=== PATIENT | female | born 1995 | race Hispanic/Latino ===

== ENCOUNTER 2018-03-14 14:06 | Emergency (ER) | payer SELFPAY ==
--- NOTE | 2018-03-14 16:05 | ER ---
Nurse's Notes [facility] Name: Helena Dent Age: 22 yrs Sex: Female : 1995 Arrival Date: 03/14/2018 Time: 14:13 Bed 21 Private MD: Diagnosis: Acute tonsillitis Presentation: 03/14 14:14 Presenting complaint: Patient states: i have sore throat 2 days ago; reports fever last hj night; took Aleve, today at 6 am;. Transition of care: patient was not received from another setting of care. Onset of symptoms was March 14, 2018. Risk Assessment: Do you want to hurt yourself or someone else? Patient reports no desire to harm self or others. Initial Sepsis Screen: Does the patient meet any 2 criteria? No. Patient's initial sepsis screen is negative. Does the patient have a suspected source of infection? No. Patient's initial sepsis screen is negative. Care prior to arrival: None. 14:14 Method Of Arrival: Ambulatory 14:14 Acuity: ROBEL 4 hj Triage Assessment: 14:16 General: Appears in no apparent distress. uncomfortable, Behavior is calm, cooperative, hj appropriate for age. Pain: Complains of pain in throat. EENT: No signs and/or symptoms were reported regarding the EENT system. Reports pain. 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 - Social history:: Smoking status: Patient/guardian denies using tobacco, Patient/guardian denies using alcohol. - Ebola Screening: : Patient negative for fever greater than or equal to 101.5 degrees Fahrenheit, and additional compatible Ebola Virus Disease symptoms Patient denies exposure to infectious person Patient denies travel to an Ebola-affected area in the 21 days before illness onset. Screenin:17 Abuse screen: Denies threats or abuse. Denies injuries from another. Nutritional hj screening: No deficits noted. Tuberculosis screening: No symptoms or risk factors identified. Fall Risk None identified. Assessment: 14:17 Respiratory: Airway is patent Respiratory effort is even, unlabored, Respiratory hj pattern is regular, symmetrical, Breath sounds are clear. EENT: Throat. Vital Signs: 14:17 BP 105 / 65; Pulse 97; Resp 18; Temp 99.8(O); Pulse Ox 99% on R/A; Weight 104.33 kg; hj Height 5 ft. 4 in. (162.56 cm); Pain 4/10; 14:17 Body Mass Index 39.48 (104.33 kg, 162.56 cm) ED Course: 14:13 Patient arrived in ED. mr 14:16 Triage completed. hj 14:17 Arm band placed on left wrist. hj 14:22 Patient has correct armband on for positive identification. Bed in low position. Call hj light in reach. Side rails up X 1. Adult w/ patient. 14:30 Flu Sent. hj 14:30 Strep Sent. hj 15:23 Edin Downs RN is Primary Nurse. hj 15:42 Floyd Argueta PA is PHCP. cp 15:42 Feroz Root MD is Attending Physician. cp 17:05 No provider procedures requiring assistance completed. Patient did not have IV access iw during this emergency room visit. Administered Medications: No medications were administered Outcome: 16:04 Discharge ordered by MD. cp 17:05 Discharged to home ambulatory. iw 17:05 Condition: good 17:05 Discharge instructions given to patient, Instructed on discharge instructions, follow up and referral plans. medication usage, Demonstrated understanding of instructions, follow-up care, medications, Prescriptions given X 1. 17:05 Patient left the ED. iw Signatures: Helena Abbott Lizzeth Cabrera RN RN Edin Downs RN RN Floyd Argueta PA PA cp Corrections: (The following items were deleted from the chart) 14:22 14:17 Pulse 97bpm; Resp 18bpm; Pulse Ox 99% RA; Temp 99.8F Oral; 104.33 kg; Height 5 hj ft. 4 in.; BMI: 39.4; Pain 4/10; hj
--- NOTE | 2018-03-14 16:05 | EDPHYS ---
Physician Documentation [facility] Name: Helena Dent Age: 22 yrs Sex: Female : 1995 Arrival Date: 03/14/2018 Time: 14:13 Bed 21 Private MD: ED Physician Feroz Root HPI: 03/14 15:56 This 22 yrs old Female presents to ER via Ambulatory with complaints of Sore cp Throat. 15:56 The patient presents with sore throat. The patient describes throat pain as constant. cp Onset: The symptoms/episode began/occurred 2 day(s) ago. 15:56 Associated signs and symptoms: Pertinent positives: cough, fever, Pertinent negatives cp diarrhea, vomiting. 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 - Social history:: Smoking status: Patient/guardian denies using tobacco, Patient/guardian denies using alcohol. - Ebola Screening: : Patient negative for fever greater than or equal to 101.5 degrees Fahrenheit, and additional compatible Ebola Virus Disease symptoms Patient denies exposure to infectious person Patient denies travel to an Ebola-affected area in the 21 days before illness onset. ROS: 16:00 Constitutional: Negative for body aches, chills, fever, poor PO intake. cp 16:00 Eyes: Negative for injury, pain, redness, and discharge. cp 16:00 ENT: Negative for drainage from ear(s), ear pain, sore throat, difficulty swallowing, difficulty handling secretions. 16:00 Respiratory: Positive for cough, Negative for shortness of breath, wheezing. 16:00 Abdomen/GI: Negative for abdominal pain, nausea, vomiting, and diarrhea. 16:00 Skin: Negative for cellulitis, rash. 16:00 Neuro: Negative for altered mental status, dizziness, headache, weakness. 16:00 All other systems are negative. Exam: 16:02 Constitutional: The patient appears in no acute distress, alert, awake, non-toxic, well cp developed, well nourished. 16:02 Head/Face: Normocephalic, atraumatic. cp 16:02 Eyes: Periorbital structures: appear normal, Conjunctiva: normal, no exudate, no injection, Sclera: no appreciated abnormality, Lids and lashes: appear normal, bilaterally. 16:02 ENT: External ear(s): are unremarkable, Ear canal(s): are normal, clear, TM's: bulging, is not appreciated, bilaterally, dullness, bilaterally, erythema, is not appreciated, bilaterally, Nose: is normal, Mouth: Lips: moist, Oral mucosa: pink and intact, moist, Posterior pharynx: Airway: no evidence of obstruction, patent, Tonsils: bilaterally enlarged, with erythema, with exudate, Uvula: midline, erythema, that is moderate, Voice: is normal. 16:02 Neck: ROM/movement: is normal, is supple, no range of motions limitations, no meningismus, no nuchal rigidity, Lymph nodes: lymphadenopathy is appreciated, anterior cervical nodes. 16:02 Chest/axilla: Inspection: normal, Palpation: is normal, no crepitus, no tenderness. 16:02 Cardiovascular: Rate: normal, Rhythm: regular. 16:02 Respiratory: the patient does not display signs of respiratory distress, Respirations: normal, no use of accessory muscles, no retractions, no splinting, no tachypnea, labored breathing, is not present, Breath sounds: are clear throughout, no decreased breath sounds, no stridor, no wheezing. 16:02 Abdomen/GI: Exam negative for discomfort, distension, guarding, Inspection: abdomen appears normal. 16:02 Skin: cellulitis, is not appreciated, no rash present. Vital Signs: 14:17 BP 105 / 65; Pulse 97; Resp 18; Temp 99.8(O); Pulse Ox 99% on R/A; Weight 104.33 kg; hj Height 5 ft. 4 in. (162.56 cm); Pain 4/10; 14:17 Body Mass Index 39.48 (104.33 kg, 162.56 cm) hj MDM: 15:42 Patient medically screened. cp 16:00 Differential diagnosis: apthous stomatitis, group A strep tonsillitis, jena's angina, cp mononucleosis, peritonsillar abscess pharyngitis, retropharyngeal abcess. 16:04 Data reviewed: vital signs, nurses notes, lab test result(s). cp 16:04 Counseling: I had a detailed discussion with the patient and/or guardian regarding: the cp historical points, exam findings, and any diagnostic results supporting the discharge/admit diagnosis, lab results, to return to the emergency department if symptoms worsen or persist or if there are any questions or concerns that arise at home. 03/14 14:19 Order name: Flu; Complete Time: 15:57 03/14 15:57 Interpretation: Reviewed. cp 03/14 14:19 Order name: Strep; Complete Time: 15:57 03/14 15:57 Interpretation: Reviewed. cp 03/14 14:53 Order name: Throat Culture EDMS Administered Medications: No medications were administered Disposition: 03/14/18 16:04 Discharged to Home. Impression: Acute tonsillitis. - Condition is Stable. - Discharge Instructions: Tonsillitis. - Prescriptions for Biaxin 500 mg Oral Tablet - take 1 tablet by ORAL route every 12 hours for 10 days; 20 tablet. - Work release form, Medication Reconciliation Form, Thank You Letter, Antibiotic Education, Prescription Opioid Use form. - Follow up: Private Physician; When: 2 - 3 days; Reason: Recheck today's complaints. - Problem is new. - Symptoms are unchanged. Addendum: 03/25/2018 08:20 Co-signature as Attending Physician, Feroz Root MD I agree with the assessment and k dr plan of care. Signatures: Dispatcher [employer] EDOH Feroz Root MD MD kdr Lizzeth Cabrera RN RN Edin Downs RN RN Floyd Argueta PA PA Corrections: (The following items were deleted from the chart) 03/14 17:05 16:04 03/14/2018 16:04 Discharged to Home. Impression: Acute tonsillitis. Condition is iw Stable. Forms are Medication Reconciliation Form, Thank You Letter, Antibiotic Education, Prescription Opioid Use. Follow up: Private Physician; When: 2 - 3 days; Reason: Recheck today's complaints. Problem is new. Symptoms are unchanged. cp
== END 2018-03-14 17:05 | disposition home or self-care (01) ==
LOC: ER 14:06
DX: J03.90 Acute tonsillitis, unspecified (principal)
CPT/HCPCS: 87070; 87081; 87804; 99283